=== PATIENT | male | born 1955 | race Two or more races ===

== ENCOUNTER 2025-02-01 09:31 | Emergency (ER) | payer OTHER ==
[~2025-02-01] VITALS: Ht 154.9 cm; Wt 94.8 kg
[2025-02-01] MEDS ORDERED: PANTOPRAZOLE SODIUM 40 MG/VIAL VIAL IV STA (10:25)
[2025-02-01] MEDS ORDERED: 0.9 % SODIUM CHLORIDE 1,000 ML IV STA (10:25)
[2025-02-01 11:22] LABS: BASO % 0.3 % (0.1-1.2); EOS # 0.10 (0.04-0.54); EOS % 2.5 % (0.7-7.0); LYMPH # 1.16 (1.18-3.74); LYMPH % 29.5 % (19.3-53.1); MEAN PLATELET VOLUME 10.90 fl (9.4-12.4); MONO # 0.48 (0.24-0.82); NEUT # 2.18 (1.56-6.13); NEUT % 55.5 % (34.0-71.1); RED CELL DISTRIBUTION WIDTH 12.8 % (11.6-14.4)
[2025-02-01 11:28] LABS: URINE APPEARANCE Clear; URINE BILIRRUBIN Negative (NEGATIVE); URINE BLOOD Negative; URINE COLOR Yellow; URINE GLUCOSE Negative (NEGATIVE); URINE KETONE Negative (NEGATIVE); URINE LEUKOCYTE Negative; URINE NITRATE Negative; URINE PROTEIN Negative (NEGATIVE); URINE UROBILINOGEN 0.2 E.U./dl
[2025-02-01 11:33] LABS: URINE BACTERIA 9.1 uL (0.0-1933); URINE RBC 9.3 uL (0.0-20.8)
[2025-02-01 11:44] LABS: MONO % 12.2 % (4.7-12.5)
[2025-02-01 11:50] LABS: URINE CAST 0.00 uL (0.0-1.40); URINE EPITHELIAL CELLS 1.0 uL (0.0-38.8); URINE WBC 1.5 uL (0.0-23.2)
[2025-02-01 11:51] LABS: INR 1.02
[2025-02-01 11:53] LABS: COVID-19 AG NEGATIVE (NEGATIVE)
[2025-02-01 12:07] LABS: ALT/SGPT 26.0 U/L (12-78); AST/SGOT 22.0 U/L (15-37); BILIRUBIN TOTAL 0.25 mg/dL (0.3-1.2); BUN CREA RATIO 13.0 (7.0-25.0); CREATININE SERUM 0.76 mg/dL (0.70-1.30); GFR 101.39; GLOBULINA 3.7 G/DL (2.4-3.5); GLUCOSE FASTING 106.0 mg/dL (65-100); OSMOLALITY SERUM 283.0 MOSM/KG (275-295)
[2025-02-01] MEDS ORDERED: CEFTRIAXONE SODIUM 1,000 MG VIAL IV STA (13:12)
[2025-02-01] MEDS ORDERED: CEFTRIAXONE SODIUM 1,000 MG VIAL ONE (13:35)
== END 2025-02-01 13:59 | disposition home or self-care (01) ==
LOC: ER 09:31
PROVIDERS: General Practice
DX: A90 Dengue fever [classical dengue] (principal); R50.9 Fever, unspecified; R05.8 Other specified cough; Z20.822 Contact with and (suspected) exposure to COVID-19; Z91.041 Radiographic dye allergy status
CPT/HCPCS: 36415; 71046; 96365; 96366; 99283; J0696; J3490; J7030